=== PATIENT | male | born 1935 | race Caucasian/White ===

== ENCOUNTER → 2019-02-12 | Outpatient (CLI) | payer MEDICARE, OTHER ==
[~2019-02-12] MED LIST: ALBU90OI INH; ALL DAY ALLERGY10 M1 PO; ALLO100 PO; AMLO5 PO; CEPH500 PO; FINA5 PO; FURO20 PO; GLYB2.5 PO; MONT10T PO; Norco 5-325 Ta1 EACH PO; POTCHL10ER PO; POTCHL20ER PO; TERA5 PO; [UNRECOGNIZED DRUG - REMARK]
[2019-02-13 13:35] LABS: Stool Occult Bld Immuno 1 Negative (NEGATIVE); Stool Occult Bld Immuno 2 Negative (NEGATIVE); Stool Occult Bld Immuno 3 Negative (NEGATIVE)
== END | disposition home or self-care (01) ==
LOC: LAB SHORT 14:42 → OLS 14:42
PROVIDERS: Physician Assistant
DX: D64.9 Anemia, unspecified (principal)
CPT/HCPCS: 82274

== ENCOUNTER 2020-01-28 18:35 | Observation (INO) | payer MEDICARE, OTHER ==
[~2020-01-28] VITALS: Ht 167.6 cm; Wt 90.2 kg
[2020-01-28 19:14] LABS: BASOPHILS ABSOLUTE AUTO 0.05 K/mm3 (0.00-0.23); BASOPHILS PERCENT AUTO 1 % (0-2); EOSINOPHILS ABSOLUTE AUTO 0.14 K/mm3 (0.00-0.68); EOSINOPHILS PERCENT AUTO 2 % (0-6); Hematocrit 38.4 % (37.0-53.0); Hemoglobin 12.4 g/dL (13.5-17.5); IMMATURE GRAN ABSOLUTE AUTO 0.02 K/mm3 (0.00-0.10); IMMATURE GRAN PERCENT AUTO 0 % (0-1); LYMPHOCYTES ABSOLUTE AUTO 1.47 K/mm3 (0.84-5.20); LYMPHOCYTES PERCENT AUTO 18 % (21-46); MONOCYTES ABSOLUTE AUTO 1.05 K/mm3 (0.16-1.47); MONOCYTES PERCENT AUTO 13 % (4-13); Mean Corpuscular HGB Conc 32.3 g/dL (31.5-36.5); Mean Corpuscular Volume 90 fL (80-100); Mean Platelet Volume 10.1 fL (9.1-12.4); NEUTROPHILS ABSOLUTE AUTO 5.36 K/mm3 (1.96-9.15); NEUTROPHILS PERCENT AUTO 66 % (41-73); Platelet Count 246 K/mm3 (150-400); RDW Standard Deviation 41.9 fL (35.1-46.3); Red Blood Cell Count 4.27 M/mm3 (4.30-5.90); White Blood Cell Count 8.09 K/mm3 (4.00-11.30)
[2020-01-28 19:34] LABS: Albumin, Blood 3.5 g/dL (3.4-5.0); Albumin/Globulin Ratio 0.9 (0.8-1.8); Bilirubin, Total 0.5 mg/dL (0.1-1.0); Bun/Creatinine Ratio 19.4 (12.0-20.0); Calcium, Blood 8.7 mg/dL (8.5-10.1); Creatinine, Blood 2.06 mg/dL (0.60-1.20); Potassium, Blood 4.8 mmol/L (3.5-5.5); Total Protein, Blood 7.5 g/dL (6.4-8.2)
[2020-01-29] MEDS ORDERED: METO25 PO (02:13)
[2020-01-29] MEDS ORDERED: AMLO5 PO (02:15)
[2020-01-29] MEDS ORDERED: FURO20 PO (02:19)
[2020-01-29] MEDS ORDERED: GLYB2.5 PO (02:22)
[2020-01-29] MEDS ORDERED: LOSA50 PO (02:26)
[2020-01-29] MEDS ORDERED: CENTRUM SILVER1 EAC2 PO (02:27)
--- NOTE | 2020-01-29 06:41 | NUR ---
01/29/20 0550 VITALS STABLE EXCEPT FOR SLIGHT TEMP. C/O ROOM TOO WARM AND THERMAOSTAT LOWERED. REMINDED TO CALL BEFORE GETTING UP BUT FORGOT AND BED ALARM NOTIFIED STAFF. VOIDED IN BR BUT FORGOT TO USE URINAL. DENIES ANY S/S EXCEPT THE DOUBLE VISION.
[2020-01-29 14:36] LABS: BASOPHILS ABSOLUTE AUTO 0.05 K/mm3 (0.00-0.23); BASOPHILS PERCENT AUTO 1 % (0-2); EOSINOPHILS ABSOLUTE AUTO 0.04 K/mm3 (0.00-0.68); EOSINOPHILS PERCENT AUTO 1 % (0-6); Hematocrit 37.9 % (37.0-53.0); Hemoglobin 12.1 g/dL (13.5-17.5); IMMATURE GRAN ABSOLUTE AUTO 0.02 K/mm3 (0.00-0.10); IMMATURE GRAN PERCENT AUTO 0 % (0-1); LYMPHOCYTES ABSOLUTE AUTO 1.01 K/mm3 (0.84-5.20); LYMPHOCYTES PERCENT AUTO 13 % (21-46); MONOCYTES ABSOLUTE AUTO 1.01 K/mm3 (0.16-1.47); MONOCYTES PERCENT AUTO 13 % (4-13); Mean Corpuscular HGB 28.5 pg (26.0-34.0); Mean Corpuscular HGB Conc 31.9 g/dL (31.5-36.5); Mean Corpuscular Volume 89 fL (80-100); Mean Platelet Volume 10.5 fL (9.1-12.4); NEUTROPHILS ABSOLUTE AUTO 5.86 K/mm3 (1.96-9.15); NEUTROPHILS PERCENT AUTO 73 % (41-73); Platelet Count 217 K/mm3 (150-400); RDW Coefficient Variation 12.8 % (11.7-14.2); RDW Standard Deviation 41.9 fL (35.1-46.3); Red Blood Cell Count 4.25 M/mm3 (4.30-5.90); White Blood Cell Count 7.99 K/mm3 (4.00-11.30)
[2020-01-29 14:57] LABS: Alanine Aminotransfer (ALT/SGP 17 U/L (12-78); Albumin/Globulin Ratio 0.7 (0.8-1.8); Alk Phos 57 U/L (50-136); Anion Gap 4 mmol/L (6-16); Aspartate Aminotrans (AST/SGOT 15 U/L (12-37); Bilirubin, Total 0.5 mg/dL (0.1-1.0); Blood Urea Nitrogen 40 mg/dL (8-24); Bun/Creatinine Ratio 22.5 (12.0-20.0); CHOL/HDL RATIO 3.2; CO2, Blood 23 mmol/L (21-32); Calcium, Blood 8.5 mg/dL (8.5-10.1); Chloride, Blood 107 mmol/L (98-108); Cholesterol 114 mg/dL (50-200); Creatinine, Blood 1.78 mg/dL (0.60-1.20); Globulin, Blood 4.1 g/dL (2.2-4.0); Glomerular Filtration Rate 39 (60-); Glucose, Blood 82 mg/dL (70-99); HDL Cholesterol 36 mg/dL (>39); LDL/HDL RATIO 1.8; Low Density Lipoprotein Chol 64 mg/dL (0-110); Potassium, Blood 4.8 mmol/L (3.5-5.5); Sodium, Blood 134 mmol/L (136-145); Total Protein, Blood 7.1 g/dL (6.4-8.2); Triglycerides 72 mg/dL (30-160); Very Low Density Lipoprot Chol 14 mg/dL (6-32)
[2020-01-29] MEDS ORDERED: CEPH500 PO (15:51)
[2020-01-29] MEDS ORDERED: ATOR20 PO (15:52)
--- NOTE | 2020-01-29 17:06 | NUR ---
PATIENT DISCHARGED TO HOME IN COMPANY OF . IV SL REMOVED WITHOUT INCIDENT. PATIENT AND VERBALIZED UNDESTANDING OF D/C INSTRUCTIONS AND MEDICATIONS. LEFT UNIT AT 1635 VIA W/C. NO BELONGINGS FOUND LEFT IN ROOM.
== END 2020-01-29 16:38 | disposition home or self-care (01) ==
LOC: ER 18:35 → MEDS 18:36
PROVIDERS: Emergency Medicine; Internal Medicine; ADMIT Internal Medicine
DX: H53.2 Diplopia (principal); I48.0 Paroxysmal atrial fibrillation; E11.22 Type 2 diabetes mellitus with diabetic chronic kidney disease; R20.0 Anesthesia of skin; I12.9 Hypertensive chronic kidney disease with stage 1 through stage 4 chronic kidney disease, or unspecified chronic kidney disease; N18.30 Chronic kidney disease, stage 3 unspecified; N40.0 Benign prostatic hyperplasia without lower urinary tract symptoms; J45.909 Unspecified asthma, uncomplicated; K21.9 Gastro-esophageal reflux disease without esophagitis; M10.9 Gout, unspecified; J32.0 Chronic maxillary sinusitis; J32.3 Chronic sphenoidal sinusitis; Z79.899 Other long term (current) drug therapy; Z87.891 Personal history of nicotine dependence; Z79.01 Long term (current) use of anticoagulants; Z79.84 Long term (current) use of oral hypoglycemic drugs
CPT/HCPCS: 36415; 70450; 70551; 80053; 80061; 82947; 85025; 93005; 93010; 97116; 97162; 99285-25; A9270-GY; G0008; G0378; Q2038

== ENCOUNTER → 2023-08-22 | Outpatient (CLI) | payer MEDICARE, OTHER ==
[~2023-08-22] MED LIST changes: +ATOR20 PO; +CENTRUM SILVER1 EAC2 PO; +LOSA50 PO; +METO25 PO
[2023-08-22 13:38] LABS: BASOPHILS ABSOLUTE AUTO 0.05 K/mm3 (0.00-0.23); BASOPHILS PERCENT AUTO 1 % (0-2); EOSINOPHILS ABSOLUTE AUTO 0.41 K/mm3 (0.00-0.68); EOSINOPHILS PERCENT AUTO 5 % (0-6); IMMATURE GRAN ABSOLUTE AUTO 0.02 K/mm3 (0.00-0.10); IMMATURE GRAN PERCENT AUTO 0 % (0-1); LYMPHOCYTES ABSOLUTE AUTO 0.83 K/mm3 (0.84-5.20); LYMPHOCYTES PERCENT AUTO 10 % (21-46); MONOCYTES ABSOLUTE AUTO 0.57 K/mm3 (0.16-1.47); MONOCYTES PERCENT AUTO 7 % (4-13); Mean Corpuscular HGB 28.9 pg (26.0-34.0); Mean Corpuscular HGB Conc 31.3 g/dL (31.5-36.5); Mean Corpuscular Volume 93 fL (80-100); Mean Platelet Volume 10.7 fL (9.1-12.4); NEUTROPHILS PERCENT AUTO 79 % (41-73); Platelet Count 332 K/mm3 (150-400); RDW Coefficient Variation 13.8 % (11.7-14.2); RDW Standard Deviation 46.2 fL (35.1-46.3); Red Blood Cell Count 3.46 M/mm3 (4.30-5.90); White Blood Cell Count 8.78 K/mm3 (4.00-11.30)
[2023-08-22 13:48] LABS: Albumin, Blood 2.4 g/dL (3.4-5.0); Albumin/Globulin Ratio 0.6 (0.8-1.8); Bilirubin, Total 0.3 mg/dL (0.1-1.0); Bun/Creatinine Ratio 16.3 (12.0-20.0); Calcium, Blood 8.3 mg/dL (8.5-10.1); Creatinine, Blood 2.15 mg/dL (0.60-1.20); Globulin, Blood 4.3 g/dL (2.2-4.0); Magnesium, Blood 1.9 mg/dL (1.6-2.4); Potassium, Blood 4.5 mmol/L (3.5-5.5); Total Protein, Blood 6.7 g/dL (6.4-8.2)
== END ==
LOC: LAB 13:33 → LAB SHORT 13:33
PROVIDERS: Physician Assistant Medical
DX: I95.9 Hypotension, unspecified (principal); R53.1 Weakness
CPT/HCPCS: 80053; 83735; 85025

== ENCOUNTER 2024-04-02 18:51 | Inpatient (IN) | payer MEDICARE, OTHER ==
[~2024-04-02] VITALS: Ht 165.1 cm; Wt 89.1 kg
[2024-04-02 19:43] LABS: Calcium, Ionized (POC) 1.12 mmol/L (1.10-1.46); Chloride (POC) 106 mmol/L (98-108); Creatinine (POC) 1.8 mg/dL (0.8-1.3); Glucose (ISTAT POC) 222 mg/dL (70-99); Hemoglobin (POC) 11.6 g/dL (13.5-17.5); Potassium (POC) 5.2 mmol/L (3.5-5.5); Sodium (POC) 139 mmol/L (135-148); Total CO2 (POC) 26 mmol/L (21-32)
[2024-04-02 19:44] LABS: BASOPHILS ABSOLUTE AUTO 0.04 K/mm3 (0.00-0.23); BASOPHILS PERCENT AUTO 1 % (0-2); EOSINOPHILS ABSOLUTE AUTO 0.16 K/mm3 (0.00-0.68); EOSINOPHILS PERCENT AUTO 3 % (0-6); Hematocrit 36.8 % (37.0-53.0); Hemoglobin 11.9 g/dL (13.5-17.5); IMMATURE GRAN ABSOLUTE AUTO 0.02 K/mm3 (0.00-0.10); IMMATURE GRAN PERCENT AUTO 0 % (0-1); LYMPHOCYTES ABSOLUTE AUTO 1.18 K/mm3 (0.84-5.20); LYMPHOCYTES PERCENT AUTO 20 % (21-46); MONOCYTES ABSOLUTE AUTO 0.44 K/mm3 (0.16-1.47); MONOCYTES PERCENT AUTO 8 % (4-13); Mean Corpuscular HGB 29.1 pg (26.0-34.0); Mean Corpuscular HGB Conc 32.3 g/dL (31.5-36.5); Mean Corpuscular Volume 90 fL (80-100); Mean Platelet Volume 10.9 fL (9.1-12.4); NEUTROPHILS ABSOLUTE AUTO 4.01 K/mm3 (1.96-9.15); NEUTROPHILS PERCENT AUTO 69 % (41-73); Platelet Count 234 K/mm3 (150-400); RDW Coefficient Variation 14.4 % (11.7-14.2); RDW Standard Deviation 47.3 fL (35.1-46.3); Red Blood Cell Count 4.09 M/mm3 (4.30-5.90); White Blood Cell Count 5.85 K/mm3 (4.00-11.30)
[2024-04-02 20:04] LABS: Albumin, Blood 3.1 g/dL (3.4-5.0); Albumin/Globulin Ratio 0.7 (0.8-1.8); Bilirubin, Total 0.4 mg/dL (0.1-1.0); Bun/Creatinine Ratio 18.5 (12.0-20.0); Calcium, Blood 8.8 mg/dL (8.5-10.1); Creatinine, Blood 1.46 mg/dL (0.60-1.20); Globulin, Blood 4.2 g/dL (2.2-4.0); Potassium, Blood 4.9 mmol/L (3.5-5.5); Total Protein, Blood 7.3 g/dL (6.4-8.2)
[2024-04-02] MEDS ORDERED: Ondansetron HCl 2 MG / ML 2ML Vial IV PRN (21:05)
[2024-04-02] MEDS ORDERED: FLU VACC TS2024-25(6MOS UP)/PF 45 MCG/0.5 ML SYRINGE IM ONE (21:05)
[2024-04-02] MEDS ORDERED: Aspirin 81 MG Chew PO SCH (22:00)
[2024-04-02] MEDS ORDERED: Atorvastatin 40 MG Tab PO SCH (22:00)
[2024-04-03 00:15] LABS: Source, Urine Clean Catch
[2024-04-03 00:21] LABS: Bilirubin, Urine Neg (Neg); Blood, Urine Neg (Neg); Glucose Qualitative, Urine Neg (Neg); Ketones, Urine Neg (Neg); Leukocyte Esterase, Urine Neg (Neg); Nitrite, Urine Neg (Neg); Protein, Urine Neg (Neg); Urobilinogen, Urine NORM (Normal)
[2024-04-03 00:33] LABS: Appearance, Urine Clear (Clear); Color, Urine Yellow (P-Yellow)
[2024-04-03 05:41] LABS: BASOPHILS ABSOLUTE AUTO 0.05 K/mm3 (0.00-0.23); BASOPHILS PERCENT AUTO 1 % (0-2); EOSINOPHILS PERCENT AUTO 4 % (0-6); Hematocrit 34.6 % (37.0-53.0); Hemoglobin 11.2 g/dL (13.5-17.5); IMMATURE GRAN ABSOLUTE AUTO 0.02 K/mm3 (0.00-0.10); IMMATURE GRAN PERCENT AUTO 0 % (0-1); LYMPHOCYTES ABSOLUTE AUTO 1.26 K/mm3 (0.84-5.20); LYMPHOCYTES PERCENT AUTO 22 % (21-46); MONOCYTES ABSOLUTE AUTO 0.56 K/mm3 (0.16-1.47); MONOCYTES PERCENT AUTO 10 % (4-13); Mean Corpuscular HGB 28.9 pg (26.0-34.0); Mean Corpuscular HGB Conc 32.4 g/dL (31.5-36.5); Mean Corpuscular Volume 89 fL (80-100); Mean Platelet Volume 10.8 fL (9.1-12.4); NEUTROPHILS ABSOLUTE AUTO 3.56 K/mm3 (1.96-9.15); NEUTROPHILS PERCENT AUTO 63 % (41-73); Platelet Count 227 K/mm3 (150-400); RDW Coefficient Variation 14.5 % (11.7-14.2); RDW Standard Deviation 46.6 fL (35.1-46.3); Red Blood Cell Count 3.88 M/mm3 (4.30-5.90); White Blood Cell Count 5.65 K/mm3 (4.00-11.30)
[2024-04-03 06:20] LABS: Albumin/Globulin Ratio 0.9 (0.8-1.8); Bilirubin, Total 0.5 mg/dL (0.1-1.0); Bun/Creatinine Ratio 17.9 (12.0-20.0); Calcium, Blood 8.7 mg/dL (8.5-10.1); Creatinine, Blood 1.34 mg/dL (0.60-1.20); Globulin, Blood 3.5 g/dL (2.2-4.0); Potassium, Blood 4.3 mmol/L (3.5-5.5); Total Protein, Blood 6.5 g/dL (6.4-8.2)
[2024-04-03] MEDS ORDERED: Insulin Human Lispro 100 Units/ML 3ML Syringe SC SCH (07:30)
[2024-04-03] MEDS ORDERED: SYMBICORT 160-4.6 GM (08:17)
[2024-04-03] MEDS ORDERED: OLME5TAB PO (08:17)
[2024-04-03] MEDS ORDERED: METO25ER PO (08:17)
[2024-04-03] MEDS ORDERED: VITAMIN B COMP1 EAC1 PO (08:18)
[2024-04-03] MEDS ORDERED: B-12500 MC2 PO (08:18)
[2024-04-03] MEDS ORDERED: Metoprolol Succinate 25 MG TABCR PO SCH ×2 (13:00→17:30)
[2024-04-03 14:33] VITALS: BP 138/94
[2024-04-03] MEDS ORDERED: ZYRTEC10 M1 PO (14:43)
[2024-04-03] MEDS ORDERED: ELIQUIS2.5 MG PO (14:45)
[2024-04-03] MEDS ORDERED: FLONASE ALLERG9.9 M2 INH (14:45)
[2024-04-03] MEDS ORDERED: GUAI600T33 PO (14:47)
[2024-04-03] MEDS ORDERED: DOCU100 PO (14:48)
[2024-04-03] MEDS ORDERED: Docusate Sodium 100 MG Cap PO PRN (16:10)
[2024-04-03] MEDS ORDERED: Albuterol HFA200 ACT/6.7 GM INH INH PRN (16:20)
[2024-04-03] MEDS ORDERED: Labetalol HCL 5 MG/ML 4ML Injection (Single Dose) IV PRN (16:45)
[2024-04-03] MEDS ORDERED: Metoprolol Tartrate 1 MG/ML 5 ML VIAL IV PRN (17:25)
[2024-04-03 18:19] VITALS: BP 172/84
[2024-04-03 19:27] VITALS: BP 145/103
--- NOTE | 2024-04-03 19:44 | NUR ---
SHIFT SUMMARY PT AXO, PLEASANT AND COOPERATIVE WITH CARE. ADMITTED THIS SHIFT. PT CONTINUES TO HAVE LEFT FACIAL DROOP. PT ON TELE, RUNNING AFIB 110'S TO 160'S. DR HOWELL NOTIFIED, NEW ORDERS PLACED. BEDSIDE SWALLOW EVAL COMPLETED AT BEDSIDE WITH FAMILY PRESENT. PT WAS ABLE TO TOLERATE THIN LIQUIDS AND APPLESAUCE BUT DID SPILL SOME WATER WHEN HE WENT TO DRINK FROM THE CUP R/T LEFT FACIAL DROOP. BED IN LOW POSITION, CALL LIGHT WITHIN REACH.
[2024-04-03] MEDS ORDERED: Losartan Potassium 25 MG Tab PO SCH (21:00)
[2024-04-03] MEDS ORDERED: Apixaban 5 MG Tab PO SCH (21:00)
[2024-04-04 02:56] VITALS: BP 145/89
--- NOTE | 2024-04-04 03:48 | NUR ---
SHIFT SUMMARY PATIENT IS ALERT AND ORIENTED. PATIENT HAS HAD NO ACUTE EVENTS THIS SHIFT. VITAL SIGNS REVIEWED. PATIENT HAS NO COMPLAINTS OF PAIN, NAUSEA, SOB OR VOMITTING THIS SHIFT. PATIENT HAS HAD NO EVENTS ON TELE. PATIENT HAS BEEN SLEEPING MOST OF SHIFT. BED IN LOCKED AND LOWEST POSITION. CALL LIGHT IN PLACE. WILL MONITOR UNTIL SHIFT CHANGE.
[2024-04-04] MEDS ORDERED: Fluticasone 0.05% Nasal Spray SCH (09:00)
[2024-04-04] MEDS ORDERED: Vitamin B Complex 1 EA Softgel PO SCH (09:00)
[2024-04-04] MEDS ORDERED: Allopurinol 100 MG Tab PO SCH (09:00)
[2024-04-04] MEDS ORDERED: Loratadine 10 MG Tab PO SCH (09:00)
[2024-04-04] MEDS ORDERED: Cyanocobalamin 500 MCG Tab PO SCH (09:00)
[2024-04-04 09:26] VITALS: BP 126/86
[2024-04-04] MEDS ORDERED: SYMBICORT 80-10.2 GM INH (10:18)
--- NOTE | 2024-04-04 12:31 | NUR ---
CALLED AT 1152 [facility]. NOTIFIED HIM OF PATIENT'S LUNG SOUNDS AND GETTING AN CHEST XRAY AND GETTING HIS SYMBICORT INHALER ORDERED.
[2024-04-04 15:25] VITALS: BP 127/78
[2024-04-04] MEDS ORDERED: ASPIR 8181 M1 PO (16:07)
[2024-04-04] MEDS ORDERED: ATOR80 PO (16:08)
--- NOTE | 2024-04-04 16:59 | NUR ---
DISCHARGE NOTE: WENT OVER DISCHARGE WITH THE PATIENT AND FAMILY. FAXED MEDS TO [facility]. PATIENT GOT HIMSELF DRESSED, IV AND TELE REMOVED. 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 NO SIGNS OR SYMPTOMS OF DISTRESS WITH DISCHARGE.
== END 2024-04-04 16:32 | disposition home health service (06) | DRG 65 ==
LOC: ER 18:51 → ERHOLD 18:52 → MEDS 18:52
PROVIDERS: Student in an Organized Health Care Education/Training Program; ADMIT Internal Medicine
DX: I63.9 Cerebral infarction, unspecified (principal); I48.20 Chronic atrial fibrillation, unspecified; N18.4 Chronic kidney disease, stage 4 (severe); R29.703 NIHSS score 3; R47.1 Dysarthria and anarthria; R29.810 Facial weakness; N40.0 Benign prostatic hyperplasia without lower urinary tract symptoms; J45.909 Unspecified asthma, uncomplicated; K21.9 Gastro-esophageal reflux disease without esophagitis; M10.9 Gout, unspecified; I12.9 Hypertensive chronic kidney disease with stage 1 through stage 4 chronic kidney disease, or unspecified chronic kidney disease; E11.22 Type 2 diabetes mellitus with diabetic chronic kidney disease; D63.1 Anemia in chronic kidney disease; R91.1 Solitary pulmonary nodule; I48.91 Unspecified atrial fibrillation; I65.22 Occlusion and stenosis of left carotid artery; I65.01 Occlusion and stenosis of right vertebral artery; E11.65 Type 2 diabetes mellitus with hyperglycemia; Z79.899 Other long term (current) drug therapy; Z90.49 Acquired absence of other specified parts of digestive tract; Z98.52 Vasectomy status; Z87.891 Personal history of nicotine dependence
CPT/HCPCS: 70450; 70496; 70498; 70551; 80047; 80053; 81003; 82947; 85014; 85025; 85730; 92610; 93005; 93010; 93306; 94640; 94664; 99285-25; A9270; G0378; Q9967